=== PATIENT | female | born 1975 | race African-American/Black ===

== ENCOUNTER 2016-07-04 19:38 | Emergency (ER) | payer OTHER ==
[~2016-07-04] VITALS: Ht 160 cm; Wt 97.5 kg
[~2016-07-04 19:38] MED LIST: IBUPROFEN600 MG ORAL; IRON325 M2 PO; LIDODERM700 M1 TOPIC
[2016-07-04 20:00] VITALS: BP 152/107
--- NOTE | 2016-07-04 21:00 | Emergency Room Report ---
History of Present Illness General Chief Complaint: Complications Source: Patient (OSWALD BENDER M.D.) Present Illness HPI [id number] presents with sharp lower abd pain, 10/10 with spotting since 3am last night. Denies nausea/vomiting, diarrhea, urinary complaints. + home test. Thinks she is is ~5 weeks based on LMP. This would be fifth . 2 resulted in children and 2 abortions. Denies other medical problems. Has not seen OB for this yet. (OSWALD BENDER M.D.) Allergies: Coded Allergies: No Known Allergies (Unverified , 02/02/14) Patient History Past Medical History: none Past Surgical History: none Pertinent Family History: none Social History: Denies: alcohol use, drug use, smoking Last Menstrual Period: 05/29/16 Now: No Immunizations: UTD Reviewed Nursing Documentation: PMH: Agreed, PSxH: Agreed (OSWALD BNEDER M.D.) Nursing Documentation-PMH Past Medical History: No History, Except For Hx Cardiac Problems: No Hx Cancer: No Hx Neurological Problems: No (OSWALD BENDER M.D.) Review of Systems All Other Systems: negative except mentioned in HPI (OSWALD BENDER M.D.) Physical Exam Vital Signs Date Time Temp Pulse Resp B/P Pulse Ox O2 Delivery O2 Flow Rate FiO2 07/04/16 19:40 98.1 81 16 152/107 100 Room Air Sp02 EP Interpretation: reviewed, abnormal General Appearance: normal inspection, well appearing, no apparent distress, alert, GCS 15, non-toxic Head: normocephalic, atraumatic Eyes: bilateral eye EOMI, bilateral eye PERRL ENT: normal ENT inspection, hearing grossly normal, normal voice Neck: normal inspection, full range of motion, supple, no bony tend Respiratory: normal inspection, lungs clear, normal breath sounds, no respiratory distress, no retraction, no wheezing Cardiovascular #1: regular rate, rhythm, no edema Gastrointestinal: normal inspection, normal bowel sounds, non tender, soft, no guarding, no hernia Genitourinary: no CVA tenderness Musculoskeletal: normal inspection, back normal, normal range of motion, Yary' s Sign negative Neurologic: normal inspection, alert, oriented x3, responsive, price clerk III-XII nml as tested, motor strength/tone normal, speech normal Psychiatric: normal inspection, judgement/insight normal, mood/affect normal Skin: normal inspection, normal color, no rash (OSWALD BENDER M.D.) Medical Decision Making Diagnostic Impression: Primary Impression: and not yet delivered in first trimester Additional Impression: Abdominal pain affecting , antepartum ER Course Tylenol given for pain + urine UA: Official sono: (OSWALD BENDER M.D.) ER Course Above note from Dr. Bender. He signed the patient out to me awaiting ultrasound. The ultrasound reveals a left complex mass in the left adnexal area (although the final reading is different). There is also some fluid in the cul-de-sac. The patient states that LLQ pain is 7/10. She does not know her blood type. There is no rebound. Differential at this time includes ectopic, threatened miscarriage, early . IV and labs were indicated at also will be taking blood type and quantitative hCG. Quant is low (967). Pain is better. Await blood type. Blood = A+. Pain is gone completely. Discussed possible ectopic versus early . She understands and will call her Ob in the morning. Advised to return immediately if pain returns. Given copy of labs. Patient stable for outpatient observation and treatment Laboratory Tests Test 07/04/16 20:40 07/04/16 22:36 Urine Color Pale yellow Urine Appearance Slightly cloudy Urine pH 7 (4.5-8.0) Urine Specific [place] 1.010 (1.005-1.035) Urine Protein 2+ (NEGATIVE) H Urine Glucose (UA) Negative (NEGATIVE) Urine Ketones Negative (NEGATIVE) Urine Occult Blood 5+ (NEGATIVE) H Urine Nitrite Negative (NEGATIVE) Urine Bilirubin Negative (NEGATIVE) Urine Urobilinogen 1 MG/DL (0.0-1.0) H Urine Leukocyte Esterase 1+ (NEGATIVE) H Urine RBC 5-10 /HPF (0 - 2) H Urine WBC 0-2 /HPF (0 - 2) Urine Squamous Epithelial Cells Many /LPF (NONE/OCC) H Urine Bacteria Moderate /HPF (NONE) H Urine HCG, Qualitative Positive White Blood Count 8.5 K/UL (4.8-10.8) Red Blood Count 3.48 M/UL (4.20-5.40) L Hemoglobin 10.4 G/DL (12.0-16.0) L Hematocrit 31.4 % (37.0-47.0) L Mean Corpuscular Volume 90 FL (80-99) Mean Corpuscular Hemoglobin 30.0 PG (27.0-31.0) Mean Corpuscular Hemoglobin Concent 33.2 G/DL (32.0-36.0) Red Cell Distribution Width 14.7 % (11.6-14.8) Platelet Count 360 K/UL (150-450) Mean Platelet Volume 6.6 FL (6.5-10.1) Neutrophils (%) (Auto) 55.7 % (45.0-75.0) Lymphocytes (%) (Auto) 35.4 % (20.0-45.0) Monocytes (%) (Auto) 6.0 % (1.0-10.0) Eosinophils (%) (Auto) 1.3 % (0.0-3.0) Basophils (%) (Auto) 1.6 % (0.0-2.0) Prothrombin Time 9.9 SEC (9.30-11.50) Prothrombin Time INR 1.0 (0.9-1.1) PTT 26 SEC (23-33) Sodium Level 137 mEQ/L (135-145) Potassium Level 4.0 mEQ/L (3.4-4.9) Chloride Level 101 mEQ/L (98-107) Carbon Dioxide Level 23 mEQ/L (20-30) Anion Gap 13 (5-15) Blood Urea Nitrogen 10 mg/dL (7-23) Creatinine 1.1 mg/dL (0.5-0.9) H Estimate Glomerular Filtration Rate > 60 mL/min (>60) Glucose Level 112 mg/dL (74-106) H Calcium Level 9.7 mg/dL (8.6-10.2) Total Bilirubin 0.3 mg/dL (0.0-1.2) Aspartate Amino Transferase (AST) 10 U/L (5-40) Alanine Aminotransferase (ALT) 8 U/L (3-33) Alkaline Phosphatase 42 U/L (35-104) Total Protein 6.6 g/dL (6.6-8.7) Albumin 3.9 g/dL (3.5-5.2) Globulin 2.7 g/dL Albumin/Globulin Ratio 1.4 (1.0-2.7) Human Chorionic Gonadotropin, Quant 967 mIU/mL (Braulio Kee M.D.) CT/MRI/US Diagnostic Results CT/MRI/US Diagnostic Results : Imaging Test Ordered: pelvic u/s Impression L mass ? cyst vs ectopic Impression: No intrauterine demonstrated. Differential considerations include very early intrauterine , spontaneous , ectopic . Recommend correlation with serial beta hCGs, consider followup sonography is indicated 3.1 cm left ovarian or paraovarian cyst. Recommend followup in 6-8 weeks Trace free cul-de-sac fluid, most likely physiologic Cervical nabothian cysts incidentally noted (Braulio Kee M.D.) Last Vital Signs Date Time Temp Pulse Resp B/P Pulse Ox O2 Delivery O2 Flow Rate FiO2 07/04/16 20:00 98.1 84 16 152/107 100 Room Air Status: improved (OSWALD BENDER M.D.) Last Vital Signs Date Time Temp Pulse Resp B/P Pulse Ox O2 Delivery O2 Flow Rate FiO2 07/05/16 01:51 98.2 70 15 133/70 98 Room Air Status: improved (Braulio Kee M.D.) Disposition: HOME, SELF-CARE Condition: Improved Scripts Acetaminophen (Tylenol) 325 Mg Tablet 650 MG ORAL Q6H Y for Prn Pain/Headache/Temp > 101, #30 TAB 0 Refills Prov: Braulio Kee M.D. 07/05/16 Referrals: Rodolfo HUMPHREY,REFERRING (PCP) OSWALD BENDER M.D. Jul 04, 2016 21:00 Braulio Kee M.D. Jul 04, 2016 22:12
[2016-07-04 21:19] LABS: APPEARANCE,URINE SLIGHTLY CLOUDY; KETONES,URINE NEGATIVE (NEGATIVE); LEUKOCYTE ESTERASE ,URINE 1+ (NEGATIVE); NITRITE,URINE NEGATIVE (NEGATIVE); PH,URINE 7 (4.5-8.0); PROTEIN,URINE 2+ (NEGATIVE); UROBILINOGEN,URINE 1 MG/DL (0.0-1.0)
[2016-07-04 21:38] LABS: WBC,URINE 0-2 /HPF (0 - 2)
[2016-07-04 21:39] LABS: BACTERIA,URINE MODERATE /HPF; SQUAMOUS EPITHELIAL CELL,UR MANY /LPF (NONE/OCC)
[2016-07-04 22:00] VITALS: BP 145/100
[2016-07-04 23:01] LABS: BASOPHILS % (AUTO) 1.6 % (0.0-2.0); EOSINOPHILS % (AUTO) 1.3 % (0.0-3.0); LYMPHOCYTES % (AUTO) 35.4 % (20.0-45.0); MEAN CORPUSCULAR HGB CONC 33.2 G/DL (32.0-36.0); MEAN CORPUSCULAR VOLUME 90 FL (80-99); MEAN PLATELET VOLUME 6.6 FL (6.5-10.1); NEUTROPHILS % (AUTO) 55.7 % (45.0-75.0); PLATELET COUNT 360 K/UL (150-450); RED BLOOD COUNT 3.48 M/UL (4.20-5.40); RED CELL DISTRIBUTION WIDTH 14.7 % (11.6-14.8); WHITE BLOOD COUNT 8.5 K/UL (4.8-10.8)
[2016-07-04 23:17] LABS: PROTHROMBIN TIME 9.9 SEC (9.30-11.50)
[2016-07-04 23:22] LABS: ALANINE AMINOTRANSFERASE 8 U/L (3-33); ALBUMIN/GLOBULIN RATIO 1.4 (1.0-2.7); ANION GAP 13 (5-15); ASPARTATE AMINO TRANSFERASE 10 U/L (5-40); CALCIUM 9.7 mg/dL (8.6-10.2); CARBON DIOXIDE 23 mEQ/L (20-30); CHLORIDE 101 mEQ/L (98-107); CREATININE 1.1 mg/dL (0.5-0.9); GLOMERULAR FILTRATION RATE > 60 mL/min (>60); HEMOLYSIS 7; SODIUM 137 mEQ/L (135-145); TOTAL PROTEIN 6.6 g/dL (6.6-8.7)
[2016-07-05] VITALS: BP 141/98
[2016-07-05] MEDS ORDERED: TYLENOL325 MG ORAL (00:48)
[2016-07-05 01:51] VITALS: BP 133/70
--- NOTE | 2016-07-05 09:41 | Diagnostic Imaging Report ---
Indication: PAIN vaginal spotting uterus is anteverted, retroflexed, positive test Technique: Transabdominal and transvaginal images Comparison: 02/04/2014 Findings: Uterus measures 11.2 cm length by 6.9 cm AP. It is anteverted but retroflexed. No intrauterine demonstrated. Endometrium measures 18 mm thick. A few fibroids are demonstrated, largest measuring 4.1 cm long axis dimension. One in the posterior fundus probably has a calcified rim. There are also cervical nabothian cysts. There is a small amount of free cul-de-sac fluid. The right ovary measures 2.8 cm in length. The left ovary measures 2.4 cm in length. Within or adjacent to the left ovary is a 3.1 cm cyst with an imperceptible rim and no peripheral hyperemia. This is best seen on transabdominal images. Compared to the prior exam, previously demonstrated fluid and debris in the endometrium are no longer evident. The left adnexal cysts is a new finding. The cervical nabothian cysts were evident previously Impression: No intrauterine demonstrated. Differential considerations include very early intrauterine , spontaneous , ectopic . Recommend correlation with serial beta hCGs, consider followup sonography is indicated 3.1 cm left ovarian or paraovarian cyst. Recommend followup in 6-8 weeks Trace free cul-de-sac fluid, most likely physiologic Cervical nabothian cysts incidentally noted
== END 2016-07-05 01:51 | disposition home or self-care (01) ==
LOC: EMR 20:43
DX: O26.91 Pregnancy related conditions, unspecified, first trimester (principal); Z3A.01 Less than 8 weeks gestation of pregnancy; N88.8 Other specified noninflammatory disorders of cervix uteri; N83.202 Unspecified ovarian cyst, left side
CPT/HCPCS: 36415; 76856; 80053; 81003; 81025; 84702; 85025; 85610; 85730; 86900; 86901; 87086; 96360

== ENCOUNTER 2017-08-30 09:04 | Emergency (ER) | payer OTHER ==
[~2017-08-30] VITALS: Ht 160 cm; Wt 81.6 kg
[~2017-08-30 09:04] MED LIST changes: +TYLENOL325 MG ORAL
[2017-08-30 09:16] VITALS: BP 134/84
[2017-08-30 09:44] VITALS: BP 134/84
--- NOTE | 2017-08-30 09:49 | Emergency Room Report ---
History of Present Illness General Chief Complaint: Earache Source: Patient Present Illness HPI This patient states that for the past 4 months she has had a "pulse" sound in her right ear. She denies pain in her ear. She denies recent illness. She denies cough or congestion. She states she did have a dental procedure/root canal done but otherwise has had no facial pain or dental pain. She denies fever or chills. She has no other complaints. Allergies: Coded Allergies: No Known Allergies (Unverified , 02/02/14) Patient History Past Medical History: none, see triage record Social History: Denies: smoking, alcohol use, drug use Last Menstrual Period: 08/25/17 Now: No : 4 Para: 2 Reviewed Nursing Documentation: PMH: Agreed; PSxH: Agreed Nursing Documentation-PMH Past Medical History: No History, Except For Hx Cardiac Problems: No Hx Cancer: No Hx Neurological Problems: No Review of Systems All Other Systems: negative except mentioned in HPI Physical Exam Vital Signs Date Time Temp Pulse Resp B/P (MAP) Pulse Ox O2 Delivery O2 Flow Rate FiO2 08/30/17 09:08 98.3 61 18 134/84 97 Room Air 98.2 Sp02 EP Interpretation: reviewed, normal General Appearance: no apparent distress, alert, GCS 15, non-toxic Head: normocephalic, atraumatic Eyes: bilateral eye normal inspection, bilateral eye PERRL ENT: hearing grossly normal, normal pharynx, no angioedema, normal voice, TMs + canals normal Neck: full range of motion, supple/symm/no masses Respiratory: no respiratory distress, no retraction, no accessory muscle use, speaking full sentences Rectal: deferred Musculoskeletal: gait/station normal Neurologic: alert, oriented x3, responsive, motor strength/tone normal, sensory intact, speech normal Psychiatric: judgement/insight normal, memory normal, mood/affect normal, no suicidal/homicidal ideation Skin: normal color, no rash, warm/dry, well hydrated Medical Decision Making Diagnostic Impression: Primary Impression: Ear symptom ER Course The patient has a pulsing sensation in her right ear. The patient's physical examination is normal. There is no evidence of foreign body in the ear. The tympanic membrane is normal. There is no fluid behind the ear. Patient is otherwise well-appearing. I am unsure of the etiology of this patient's symptoms. However, I do not suspect an emergency medical condition. The patient is instructed to follow-up with an vp clinical research if her symptoms continue. At this time, I did not identify an emergency medical condition. The patient is given return precautions and follow up instructions. Last Vital Signs Date Time Temp Pulse Resp B/P (MAP) Pulse Ox O2 Delivery O2 Flow Rate FiO2 08/30/17 09:16 98.2 61 18 134/84 97 Room Air 98.2 Disposition: HOME, SELF-CARE Condition: Stable Patient Instructions: Keesha Nowak DO Aug 30, 2017 09:49
== END 2017-08-30 09:45 | disposition home or self-care (01) ==
LOC: EMR 09:24
DX: H92.01 Otalgia, right ear (principal)
CPT/HCPCS: 99282

== ENCOUNTER 2019-03-01 02:24 | Emergency (ER) | payer OTHER ==
[~2019-03-01] VITALS: Ht 160 cm; Wt 79.4 kg
[2019-03-01 02:33] VITALS: BP 146/87
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
[2019-03-01 03:50] VITALS: BP 146/87
== END 2019-03-01 03:50 | disposition home or self-care (01) ==
LOC: EMR 02:58
DX: S00.83XA Contusion of other part of head, initial encounter (principal); Y04.2XXA Assault by strike against or bumped into by another person, initial encounter; Y92.9 Unspecified place or not applicable; F17.200 Nicotine dependence, unspecified, uncomplicated
CPT/HCPCS: 70450; 70486; 99284